=== PATIENT | male | born 1965 | race Caucasian/White ===

== ENCOUNTER 2018-01-18 09:41 | Inpatient (IN) | payer OTHER ==
[~2018-01-18] VITALS: Ht 195.6 cm; Wt 103.4 kg
--- NOTE | ~2018-01-18 | HC ---
[facility] [place] [address] CONSULTATION Name: SUZETTE MUSA Room #: 356-P [facility] IN .R.#: [id number] Admission: 01/18/18 Attend Phys: Yovany Martinez MD Discharge: 01/19/18 Date of : 63 Report #: [id number] THIS REPORT FOR: //name// CC: Yovany Valencia DATE OF SERVICE: 01/18/2018 HISTORY OF PRESENT ILLNESS: This is a 52-year-old male patient who was evaluated by me for numbness on the left side. This numbness started yesterday. It started spontaneously without any trauma. It was involving the left upper extremity and left lower extremity and to some extent left side of the face. He did have some balance difficulty. The symptoms are better, but have not resolved. He denies any prior history of stroke. He does not know any aggravating or relieving factor for his symptoms. REVIEW OF SYSTEMS: Indicate that the patient in general is healthy. He has been noticed to have some liver enzyme elevations in the past. According to the , who is a nurse, this patient's last liver enzymes were normal. He is on statin. It looks like he is on a small dose of statin of 10 mg. He does have a melanoma removed twice. He does have high cholesterol, but I do not know how much the cholesterol is in this patient. I carried out 14-point review of systems on this patient and he does not have any clearcut eye, ENT, cardiac, respiratory, GI, , musculoskeletal, constitutional, dermatological, hematological, throat, allergic, endocrine symptom associated with present symptomatology. He does have a history of depression. He has taken antidepressants for a long time. The depression has been relatively mild and reasonably controlled with antidepressant. PAST MEDICAL HISTORY: Negative for stroke. FAMILY HISTORY: Positive for stroke in father. He is the only male child, but he has sisters who do not have any history of stroke or heart attack, but they have history of hypertension. SOCIAL HISTORY: He does drink alcohol, but only periodically. Two to three days ago he drank alcohol when he went to a ball game. PHYSICAL EXAMINATION: His examination indicates that this patient is alert, responsive, able to follow simple and complex command. His speech, concentration, fund of knowledge and memory is at his baseline. His cranial nerve examination 2-12 is unremarkable. His neuromuscular examination is unremarkable. He has unremarkable strength and sensation on both sides. I could not look at the patient's fundus. There is no meningeal sign. There is no carotid bruit. There is no thyroid mass. His pulses are palpable. He has no edema, cyanosis or jaundice. His cardiac examination shows unremarkable [address] [address] CONSULTATION Name: SUZETTE MUSA JR Room #: 356-P [facility] IN M.R.#: [id number] Admission: 01/18/18 Attend Phys: Yovany Martinez MD Discharge: 01/19/18 Date of : 63 Report #: [id number] heart sounds. Respiratory examination does not show any respiratory difficulty or rhonchi. His last blood pressure is 151/101, pulse is 64, temperature is 97.8. LABORATORY DATA: Indicate a RBC count of 6.16. His GFR is 63, his AST at 45, ALT is 101. His MRI of the brain does demonstrate a small stroke in the henri[place] area. His CT angiogram is normal. He also had a spine MRI. IMPRESSION: 1. 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 2. Elevated liver enzymes. 3. Somewhat higher than expected hemoglobin and RBC count. 4. History of lipidemia. 5. History of cerebrovascular accident in the family. 6. C-spine abnormality, which appeared to be incidental finding. RECOMMENDATIONS: 1. Antiplatelet therapy. I discussed with him the aspirin, the Plavix, combination of aspirin and Plavix for about 21 days or just aspirin. We will continue aspirin, but if symptoms continue then I think we can add Plavix for 21 days because this is a very small stroke. 2. Push oral fluids. 3. The patient ideally needs to be on high dose of statin. If his liver function continues to be abnormal that will be problem to increase his dose of statin. He may have to stop drinking alcohol altogether. 4. His CBC will be repeated tomorrow to see if his hemoglobin and RBC is better and we will also check his lipid profile. 5. He needs an echocardiogram. 6. He needs a 24-hour event monitor as an outpatient. 7. I think we will go ahead and do a hypercoagulable profile in this patient and also do some collagen vascular profile. Some of it may have to be done as an outpatient because of the policies here. Ultimately, I will suggest getting a CBC, CMP, TSH, vitamin B12, cardiolipin antibody, homocysteine screen, JUDSON, rheumatoid factor to complete the workup. 8. No spine surgeon comes here, but I reviewed the films. He does have problem with the spine, but those are incidental findings and those can be addressed as an outpatient. 9. I do not know whether they will even do an echocardiogram over the weekend or not, we may even have to do that as an outpatient. This patient needs an extensive workup and followup with a neurologist because of his young age and stroke in a relatively healthy individual. His blood pressure and heart should be monitored tonight. If there is any evidence for atrial fibrillation on telemetry, he will need anticoagulation. His blood pressure needs to be very tightly controlled as an outpatient as well as something may have to be started as an inpatient, which I will defer to you. [facility] [address] [place] [address] CONSULTATION Name: SUZETTE MUSA Room #: 356-P [facility] IN .R.#: [id number] Admission: 01/18/18 Attend Phys: Yovany Martinez MD Discharge: 01/19/18 Date of : 63 Report #: [id number] Thank you very much for this referral. <ELECTRONICALLY SIGNED> By: David Fitch MD 01/23/18 1355 1801 2101 David Fitch MD /nt
--- NOTE | ~2018-01-18 | EKG ---
[place] [address] [facility] [place] [address] ELECTROCARDIOGRAM REPORT Name: SUZETTE MUSA Room #: 356-P [facility] IN M.R.#: [id number] Admission: 01/18/18 Attend Phys: Yovany Martinez MD Discharge: 01/19/18 Date of : 63 Report #: [id number] THIS REPORT FOR: //name// [facility] ED Test Date: 2018-01-18 Test Time: 10:33:01 Pat Name: SUZETTE MUSA Department: Room: 356 Gender: M [employer]: Karyn MCGINNIS : 1965 Requested By: Babar Delarosa Order Number: [id number] MD: Hal Lozano Measurements Intervals [place] Rate: 63 P: 19 TN: 207 QRS: 24 QRSD: 94 T: 59 QT: 393 QTc: 403 Interpretive Statements Sinus rhythm Borderline prolonged TN interval Borderline low voltage, extremity leads No previous ECG available for comparison Electronically Signed On 01-19-2018 14:02:35 CDT by Hal Lozano [email or web address] <ELECTRONICALLY SIGNED> By: Hal Lozano MD, [facility] 01/19/18 1402 D: [id number] 32 Hal Lozano MD, FACC /EPI
[2018-01-18 10:03] VITALS: BP 158/88
[2018-01-18 10:06] LABS: BASOPHILS 1.1 % (0.0-2.0); EOSINOPHILS 0.9 % (0.0-3.0); HEMATOCRIT 51.9 % (42.0-52.0); LYMPHOCYTES 44.4 % (24.0-44.0); MCH 29.3 pg (26.0-34.0); MCHC 34.7 g/dL (28.0-37.0); MCV 84.3 fL (80.0-100.0); PLATELET COUNT 206 thou/uL (150-400); POLYS 44.6 % (36.0-66.0); RBC 6.16 mil/uL (4.50-6.00); RDW 13.7 % (10.5-14.5); WBC 4.5 thou/uL (4.0-11.0)
[2018-01-18] MEDS ORDERED: ZOLOFT50 MG PO (10:13)
[2018-01-18] MEDS ORDERED: LIPITOR10 MG (10:13)
[2018-01-18] MEDS ORDERED: PREVACID30 MG PO (10:14)
[2018-01-18 10:20] LABS: ANION GAP 5 mmol/L (7-16); BUN 20 mg/dL (7-18); CALCIUM 9.5 mg/dL (8.5-10.1); CHLORIDE 104 mmol/L (98-107); CO2 30 mmol/L (21-32); CREATININE 1.2 mg/dL (0.7-1.3); GLUCOSE 117 mg/dL (74-106); POTASSIUM 4.1 mmol/L (3.5-5.1); SODIUM 139 mmol/L (136-145)
[2018-01-18 10:21] LABS: PROTIME 10.7 Seconds (9.3-11.4)
[2018-01-18 10:26] LABS: ALBUMIN 4.2 g/dL (3.4-5.0); SGPT 69 U/L (30-65); TOTAL BILIRUBIN 0.9 mg/dL (<0.1-1.0); TOTAL PROTEIN 8.1 g/dL (6.4-8.2); TROPONIN-I < 0.04 ng/mL (<0.06)
[2018-01-18 11:14] LABS: SGOT 45 U/L (15-37)
[2018-01-18 12:37] VITALS: BP 146/97
[2018-01-18 12:57] VITALS: BP 151/101
[2018-01-18] MEDS ORDERED: DIPHENHIST50 MG PO (13:18)
[2018-01-18 18:38] VITALS: BP 131/84
[2018-01-18 19:06] VITALS: BP 128/88
[2018-01-18 19:08] LABS: TSH 1.911 uIU/mL (0.358-3.740)
[2018-01-18 23:38] VITALS: BP 138/91
[2018-01-19 04:34] VITALS: BP 141/101
[2018-01-19 06:21] LABS: HEMATOCRIT 49.2 % (42.0-52.0); HEMOGLOBIN 17.1 gm/dL (14.0-18.0); MCH 29.2 pg (26.0-34.0); MCHC 34.8 g/dL (28.0-37.0); MCV 83.9 fL (80.0-100.0); RBC 5.86 mil/uL (4.50-6.00); RDW 13.4 % (10.5-14.5); WBC 4.5 thou/uL (4.0-11.0)
[2018-01-19 06:38] LABS: ALBUMIN 3.6 g/dL (3.4-5.0); CHOLESTEROL 203 mg/dL (<200); DIRECT BILIRUBIN 0.1 mg/dL (<0.1-0.3); HDL CHOLESTEROL 30 mg/dL (>40); SGOT 12 U/L (15-37); SGPT 52 U/L (30-65); TC:HDL 6.8 Ratio (Not establshd); TOTAL BILIRUBIN 0.6 mg/dL (<0.1-1.0); TOTAL PROTEIN 7.1 g/dL (6.4-8.2); TRIGLYCERIDE 454 mg/dL (<150); VLDL 91 mg/dL (<40)
[2018-01-19 07:33] VITALS: BP 146/101
[2018-01-19] MEDS ORDERED: ASA5UEC PO (08:53)
[2018-01-19] MEDS ORDERED: LISINOPRIL10 MG PO (08:53)
[2018-01-19 09:17] VITALS: BP 146/101
== END 2018-01-19 09:39 | disposition home or self-care (01) | DRG 66 ==
LOC: ER 09:41 → EROBS 11:21 → 3W 12:45
PROVIDERS: Emergency Medicine; Psychiatry & Neurology Neuromuscular Medicine
DX: I63.9 Cerebral infarction, unspecified (principal); I10 Essential (primary) hypertension; E78.00 Pure hypercholesterolemia, unspecified; R79.89 Other specified abnormal findings of blood chemistry; Z79.899 Other long term (current) drug therapy; Z82.3 Family history of stroke; Z82.49 Family history of ischemic heart disease and other diseases of the circulatory system
CPT/HCPCS: 10779

== ENCOUNTER → 2018-01-21 | Outpatient (CLI) | payer OTHER ==
[~2018-01-21] MED LIST: ASA5UEC PO; DIPHENHIST50 MG PO; LIPITOR10 MG; LISINOPRIL10 MG PO; PREVACID30 MG PO; ZOLOFT50 MG PO
--- NOTE | ~2018-01-21 | 2DMMODE ---
[facility] [place] [address] 2 D/M-MODE ECHOCARDIOGRAM Name: SUZETET MUSA JR Room #: [facility]#: [id number] Admission: 01/21/18 Attend Phys: Yovany Martinez MD Discharge: Date of : 63 Date of Service: 01/21/18 1141 Report #: [id number] THIS REPORT FOR: //name// APPROVED REPORT Study performed: 01/21/2018 09:15:23 EXAM: Comprehensive 2D, Doppler, and color-flow Echocardiogram Patient Location: Out-Patient Room #: Echo lab Status: routine BSA: 2.37 HR: 71 bpm BP: 158/96 mmHg Other Information Study Quality: Good Indications CVA/TIA Hypertension/HDD Echo Enhancing Agent Indication: Rule out Shunt Agent(s) / Amount(s) Used: Agitated Saline 7 cc 2D Dimensions RVDd: 35.71 mm LVEF(%): 60.09 (>50%) IVSd: 9.61 (7-11mm) LVOT Diam: 25.26 (18-24mm) LVDd: 45.68 mm PWd: 10.01 (7-11mm) Ascending Ao: 33.44 (22-36mm) LVDs: 31.10 (25-40mm) Aortic Root: 35.64 mm IVC: 16.00 mm Blevins's LVEF: 60.09 % Volumes Left Atrial Volume (Systole) Single Plane 4CH: 44.63 mL Single Plane 2CH: 53.34 mL LA ESV Index: 23.00 mL/m2 Aortic Valve AoV Peak Jose Luis.: 1.36 m/s AO Peak Gr.: 7.37 mmHg LVOT Max P.21 mmHg LVOT Max V: 1.25 m/s FABIAN Vmax: 4.60 cm2 [facility] [place] [address] 2 D/M-MODE ECHOCARDIOGRAM Name: SUZETTE MUSA Room #: [facility]#: [id number] Admission: 01/21/18 Attend Phys: Yovany Martinez MD Discharge: Date of : 63 Date of Service: 01/21/18 1141 Report #: [id number] Mitral Valve E/A Ratio: 0.8 MV Decel. Time: 356.24 ms MV E Max Jose Luis.: 0.58 m/s MV A Jose Luis.: 0.72 m/s MV PHT: 103.31 ms IVRT: 170.70 ms Pulmonary Valve PV Peak Jose Luis.: 1.15 m/s PV Peak Gr.: 5.32 mmHg Pulmonary Vein P Vein S: 0.44 m/s P Vein A: 0.24 m/s P Vein D: 0.34 m/s P Vein A Dur.: 110.7 msec P Vein S/D Ratio: 1.29 Left Ventricle The left ventricle is normal size. There is normal left ventricular wall thickness. The left ventricular systolic function is normal. The left ventricular ejection fraction is within the normal range. LVEF is 55-60%. Grade I - abnormal relaxation pattern. Right Ventricle The right ventricle is normal size. The right ventricular systolic function is normal. Atria The left atrium size is normal. Small PFO is noted with valsalva. Right atrium is at the upper limits of normal. Aortic Valve The aortic valve is normal in structure. No aortic regurgitation is present. There is no aortic valvular stenosis. Mitral Valve The mitral valve is normal in structure. There is no mitral valve regurgitation noted. No evidence of mitral valve stenosis. Tricuspid Valve The tricuspid valve is normal in structure. There is no tricuspid valve regurgitation noted. Pulmonic Valve The pulmonary valve is normal in structure. There is no pulmonic valvular regurgitation. [address] [address] 2 D/M-MODE ECHOCARDIOGRAM Name: THUAN MUSAJAYLENE Chavarria JR Room #: [facility]#: [id number] Admission: 01/21/18 Attend Phys: Yovany Martinez MD Discharge: Date of : 63 Date of Service: 01/21/18 1141 Report #: [id number] Great Vessels The aortic root is normal in size. IVC is normal in size and collapses >50% with inspiration. Pericardium There is no pericardial effusion. <Conclusion> The left ventricle is normal size. LVEF is 55-60%. The aortic valve is normal in structure. The mitral valve is normal in structure. The tricuspid valve is normal in structure. The pulmonary valve is normal in structure. There is no pericardial effusion. Small PFO is noted with valsalva. <ELECTRONICALLY SIGNED> By: Dae Da Silva MD 01/21/18 1141 1141 1141 Dae Da Silva MD /INF
== END ==
LOC: CV 08:59
DX: I10 Essential (primary) hypertension (principal); I63.9 Cerebral infarction, unspecified

== ENCOUNTER → 2020-05-03 | Outpatient (CLI) | payer OTHER | LOC: CAT 13:03 | PROVIDERS: ATTEND Internal Medicine Cardiovascular Disease | DX: I25.10 Atherosclerotic heart disease of native coronary artery without angina pectoris (principal); E78.00 Pure hypercholesterolemia, unspecified ==

== ENCOUNTER → 2020-05-04 | Outpatient (CLI) | payer OTHER | LOC: SJCVCIMAG 09:08 | PROVIDERS: ATTEND Internal Medicine Cardiovascular Disease | DX: R20.0 Anesthesia of skin (principal); E78.00 Pure hypercholesterolemia, unspecified; R06.09 Other forms of dyspnea; I10 Essential (primary) hypertension; R53.83 Other fatigue; Z86.73 Personal history of transient ischemic attack (TIA), and cerebral infarction without residual deficits ==